=== PATIENT | male | born 1940 | race Caucasian/White ===

== ENCOUNTER → 2024-11-18 14:37 | Outpatient (CLI) | payer MEDICARE, OTHER, SELFPAY ==
[2024-11-18 15:18] LABS: Add Manual Diff / Slide Review NO; Basophils Absolute Auto 0 /uL (0-100); Basophils Percent Auto 0.8 % (0-2); Eosinophils Absolute Auto 200 /uL (0-450); Eosinophils Percent Auto 5.8 % (2-4); Hematocrit 39.3 % (41-53); Hemoglobin 13.3 g/dL (13.5-17.5); Lymphocytes Absolute Auto 1100 /uL (1100-4500); Lymphocytes Percent Auto 32.3 % (25-40); Mean Corpuscular HGB Conc 33.9 % (30-36); Mean Corpuscular Hemoglobin 31.9 PG (26-34); Monocytes Absolute Auto 400 /uL (0-900); Neutrophils Absolute Auto 1700 /uL (1500-7000); Neutrophils Percent Auto 49.1 % (50-75); Platelet Count 96 X10^3/uL (150-400); Red Blood Cell Count 4.18 X10^6/uL (4.5-5.9); Red Cell Distribution Width 14.8 % (11.6-14.8); White Blood Cell Count 3.4 X10^3/uL (4.5-11.0)
[2024-11-18 15:50] LABS: Alanine Aminotransferase 22 IU/L (<50); Albumin 4.3 g/dL (3.5-5.0); Albumin Globulin Ratio 1.2 (1.0-2.8); Alkaline Phosphatase 53 U/L (38-126); Aspartate Aminotransferase 31 IU/L (17-59); BUN Creatinine Ratio 22.1 (6-22); Bilirubin Total 0.3 mg/dL (0.2-1.3); Blood Urea Nitrogen 30 mg/dL (9-20); Calcium 9.4 mg/dL (8.4-10.2); Carbon Dioxide 26 mmol/L (22-32); Chloride 104 mmol/L (98-107); Cholesterol 137 mg/dL (140-199); Estimated Glomerular Filt Rate 51 mL/min (>60); Globulin 3.7 g/dL (1.7-4.1); Glucose 104 mg/dL (80-110); HDL Cholesterol 49 mg/dL (40-60); HEMOLYSIS < 15 (0-50); LDL Cholesterol Calculated 40 mg/dL (<100); Potassium 4.6 mmol/L (3.4-5.1); Sodium 137 mmol/L (137-145); Triglycerides 239 mg/dL (35-150)
== END ==
PROVIDERS: PCP Registered Nurse; Referring Provider Registered Nurse; Visit Provider Registered Nurse
DX: Z13.220 Encounter for screening for lipoid disorders (principal); D69.6 Thrombocytopenia, unspecified; N28.9 Disorder of kidney and ureter, unspecified
CPT/HCPCS: 36415; 80053; 80061; 85025

== ENCOUNTER → 2024-12-02 09:16 | Outpatient (CLI) | payer MEDICARE, OTHER, SELFPAY ==
--- NOTE | 2024-12-02 | DI.ECHO.S_ITS ---
[facility] : : [address] : : [place] : : [id number] : : Phone: [phone] Echocardiogram Report + + :Name: CUBA BAILEY Study Date: 12/02/2024 Height: 71 in : :[facility] ReadingLocation: Weight: 160 lb : : Gender: Male BSA: 1.9 m2 : :: 1940 Age: 84 yrs BP: 166/84 mmHg: :Reason For Study: AORTIC HEART MURMUR : :Ordering Physician: ORI, : :JAMEL Performed By: Amdaor Nguyen : :Referring: JAMEL REHMAN : + + Interpretation Summary Normal sinus rhythm with wide QRS complexes. Normal LV size and wall thickness. Septal dyssynchrony probably due to conduction system disease. Otherwise mild global hypokinesis with ejection fraction 45-50%. Stage I diastolic dysfunction. Mild-moderate mitral annular calcification. There is associated degenerative change of the posterior mitral valve leaflet with small filamentous lesion on the atrial aspect of the leaflet. Aortic sclerosis without stenosis, but with mild associated aortic regurgitation. Otherwise no significant valvular abnormalities. Mildly dilated aortic root measuring 4 cm in diameter. Estimated PA systolic pressure is 25 mm hg assuming RA pressure of 3 mm Hg. No prior echo available for comparison. Procedure: A two-dimensional transthoracic echocardiogram with color flow and Doppler was performed. The study quality was technically good. There is no prior echocardiogram noted for this patient. The patient was in normal sinus rhythm during the exam. Left Ventricle: The left ventricle is normal in size. There is normal left ventricular wall thickness. There is no ventricular septal defect visualized. The ejection fraction is estimated to be 40-45%. There is mild global hypokinesis of the left ventricle. Diastolic parameters suggest a relaxation abnormality of the left ventricle, consistent with probable normal filling pressures. Right Ventricle: The right ventricle is borderline dilated. The right ventricular systolic function is normal. Atria: The left atrial size is normal. Right atrial size is normal. There is no Doppler evidence for an atrial septal defect. Mitral Valve: There is mild to moderate mitral annular calcification. The mitral valve leaflets appear mildly thickened, but open well. The mitral valve leaflets are slightly calcified. There is trace mitral regurgitation. Aortic Valve: The aortic valve is trileaflet. The aortic valve opens well. The aortic valve is mildly calcified. There is mild aortic regurgitation. Tricuspid Valve: The tricuspid valve leaflets are thin and pliable. There is mild tricuspid regurgitation. The right ventricular systolic pressure is estimated to be at least 25 mmHg based on an estimated right atrial pressure of 3 mm Hg. Pulmonic Valve: The pulmonic valve is not well visualized. There is no pulmonic valvular regurgitation. Great Vessels: The aortic root is mildly dilated. The ascending aorta is mildly enlarged. The pulmonary artery is normal size. The IVC is of normal diameter and collapses greater than 50% with a sniff. This suggests a low right atrial pressure of 3 mm Hg. Pericardium/ Pleura There is no pericardial effusion. There is no pleural effusion. MMode/2D Measurements & Calculations LVIDd: 4.9 cm LVOT diam: 2.0 cm LVIDs: 3.6 cm Ao root diam: 4.0 cm FS: 27.3 % asc Aorta Diam: 3.9 cm EPSS: 1.1 cm IVSd: 1.1 cm LVPWd: 0.94 cm LV huang. diameter/BSA (cm/m^2): 2.6 LV sys. diameter/BSA (cm/m^2): 1.9 LA A2 area: 20.8 cm2 RA long axis: 4.3 cm LA A4 area: 19.0 cm2 RA area: 13.3 cm2 LA length (vol): 5.4 cm RA vol: 35.2 ml LA vol: 62.3 ml RA : 18.4 ml/m2 LA vol index: 32.5 ml/m2 IVC diam: 1.4 cm RVD1 (basal): 4.0 cm RVD2 (mid): 3.4 cm TAPSE: 2.6 cm Doppler Measurements & Calculations Ao V2 max: 191.7 cm/sec LVOT Max Bin: 86.9 cm/sec Ao V2 mean: 137.2 cm/sec LV V1 max P.0 mmHg Ao max P.7 mmHg LV V1 VTI: 21.6 cm Ao mean P.3 mmHg EARLINE(I,D): 1.4 cm2 Ao V2 VTI: 48.3 cm EARLINE(V,D): 1.4 cm2 sev ratio: 0.45 EARLINE indexed to BSA (cm^2/m^2): 0.75 AI P1/2t: 469.3 msec AI dec slope: 196.0 cm/sec2 MV E max bin: 46.2 cm/sec TR max bin: 236.7 cm/sec MV A max bin: 83.7 cm/sec TR max P.4 mmHg MV E/A: 0.55 PA V2 max: 86.2 cm/sec Med Peak E' Bin: 4.3 cm/sec PA V2 mean: 51.8 cm/sec E/E' med: 10.8 PA mean P.2 mmHg Lat Peak E' Bin: 5.9 cm/sec PA pr(Accel): 29.3 mmHg E/E' lat: 7.8 E/e' average: 9.3 MV dec time: 0.23 sec SV(LVOT): 69.0 ml Electronically signed by: Valentine Larikn M.D. on Reading Physician:12/02/2024 10:56 AM
== END ==
PROVIDERS: PCP Registered Nurse; Referring Provider Registered Nurse; Visit Provider Registered Nurse
DX: I08.3 Combined rheumatic disorders of mitral, aortic and tricuspid valves (principal); I77.810 Thoracic aortic ectasia; I77.89 Other specified disorders of arteries and arterioles
CPT/HCPCS: 93306

== ENCOUNTER → 2025-02-23 10:11 | Outpatient (CLI) | payer MEDICARE, OTHER, SELFPAY ==
--- NOTE | 2025-02-23 21:59 | DI.NM.S_ITS ---
DATE OF SERVICE: 02/23/2025 NUCLEAR CARDIOLOGY MYOCARDIAL PERFUSION STUDY PROCEDURE: Pharmacologic vasodilator stress and rest myocardial perfusion imaging with gating to assess ejection fraction and regional wall motion. ORDERING PROVIDER: Dr. Binh Barger. INDICATIONS: The patient is an 84-year-old male with LBBB and atypical chest discomfort and mildly reduced systolic function. CARDIAC STRESS: Per protocol, 0.4 mg of regadenoson was infused with a slightly blunted hemodynamic response. Heart rate increased from 54 bpm to 74 bpm, but blood pressure remained unchanged. He had no chest discomfort. His resting ECG shows sinus rhythm with LBBB that precludes ST-segment analysis. There are no significant ST-segment shifts or arrhythmias with stress. Per protocol, 26.8 millicuries of technetium-99 Myoview was injected and he was imaged 15 minutes later using a gated SPECT acquisition protocol. Earlier in the day while at rest, he had been injected with 10.6 millicuries of technetium-99 Myoview and imaged 15 minutes later, again using a gated SPECT acquisition protocol. FINDINGS: 1. Raw data. There is fair myocardial tracer uptake with slight motion noted. The lung/heart ratio is normal at 0.24 with a normal TID ratio of 0.90. 2. Quantitated gated SPECT: Post-stress ejection fraction is 68% with probable mild hypokinesis in the proximal to mid inferior wall but no other wall motion abnormality. The resting ejection fraction is 58%, although visually appears unchanged from the stress ejection fraction, again with probable hypokinesis in the proximal to mid inferior wall. Resting end-diastolic volume is mildly increased at 141 mL. 3. Myocardial perfusion imaging: Post-stress supine images show a [id number] perfusion defect throughout the inferior wall and inferior septum, extending to but excluding the apex, in a pattern consistent with diaphragmatic attenuation except extends more into the septum than typical for this. This defect improves, but does not completely resolve on the prone images. The resting images show an identical perfusion pattern without any significant improvement in the inferior and inferoseptal defect. IMPRESSION: 1. Probable abnormal, but low risk, myocardial perfusion study. 2. Moderate, fixed perfusion defect in the inferior wall and inferior septum that improves, but does not completely resolve on the prone images. While this could reflect diaphragmatic attenuation artifact, there is a wall motion abnormality in the proximal to mid inferior wall, suggesting this likely reflects a previous nontransmural infarction, although could also be produced by his LBBB. There is no reversibility to suggest any myocardial ischemia. 3. Mildly increased left ventricular volumes with preserved left ventricular systolic function except mild hypokinesis in the proximal to mid inferior wall. 4. No angina or ECG evidence of ischemia although the LBBB precludes ST-segment analysis. There were no arrhythmias. Pal Nicole - RS/fn/AY doc#: [id number]/job#: [id number] dd: 02/23/2025 17:45:00 dt: 02/23/2025 21:17:00 DICTATING MD/COPIES TO: Damien Bravo MD; Vira Barger MD COPIES MNE: HALINA;
== END ==
PROVIDERS: PCP Registered Nurse; Referring Provider Internal Medicine Cardiovascular Disease; Visit Provider Internal Medicine Cardiovascular Disease
DX: I42.9 Cardiomyopathy, unspecified (principal); I44.7 Left bundle-branch block, unspecified; R07.89 Other chest pain
CPT/HCPCS: 78452; 93017; A9502; J2785